=== PATIENT | female | born 1975 | race African-American/Black ===

== ENCOUNTER → 2018-08-08 | Outpatient (CLI) | payer MEDICAID, OTHER ==
[~2018-08-08] MED LIST: GABA300C18 PO
--- NOTE | 2018-08-08 17:18 | RAD ---
EXAM: Ultrasound right breast DATE: 08/08/2018 2:58 PM INDICATION: RT CHEST WALL NODULES along mastectomy scar. COMPARISON: None available FINDINGS: Changes of prior mastectomy are seen. Focal nodularity is seen along the incision site, likely scar tissue. Approximately 2 cm cephalad to the incision is a focal 6 mm hypoechoic nodular structure, possibly representing residual postsurgical change. Hypoechoic irregularity is seen within the right axillary region, also likely postsurgical/posttreatment in nature. IMPRESSION: 1. Mild nodularity along the mastectomy incision is likely postsurgical scarring. 2. Distinct 6 mm hypoechoic nodule 2 cm cephalad to the incision as well as changes in the right axillary region may be postsurgical given history of recent surgery. Consider 6 month follow-up to assess for interval change. Electronically signed by: Octavio Maher MD (08/08/2018 5:14 PM) [facility]
== END | disposition home or self-care (01) ==
LOC: US 14:44
PROVIDERS: ATTEND Psychiatry & Neurology Child & Adolescent Psychiatry
DX: C50.911 Malignant neoplasm of unspecified site of right female breast (principal); R91.8 Other nonspecific abnormal finding of lung field; Z17.0 Estrogen receptor positive status [ER+]; Z90.11 Acquired absence of right breast and nipple
CPT/HCPCS: 76641

== ENCOUNTER 2018-10-01 08:41 | Outpatient (CLI) | payer OTHER ==
[~2018-10-01] VITALS: Ht 167.6 cm; Wt 122.5 kg
[~2018-10-01 08:41] MED LIST changes: +AMLO5TAB10 PO; +HYDR-3164 PO
--- NOTE | 2018-10-01 09:28 | NUR ---
Patient has concerns about having port removed because her breast area feels different and some swelling. Dr. Whatley spoke with patient and have decided to reschedule port removal until after she follows up with Dr. Gonzales.
== END 2018-10-01 09:15 | disposition home or self-care (01) ==
LOC: INTRAD 08:41
PROVIDERS: ATTEND Internal Medicine Hematology & Oncology
DX: C50.919 Malignant neoplasm of unspecified site of unspecified female breast (principal); Z53.8 Procedure and treatment not carried out for other reasons

== ENCOUNTER → 2018-10-02 | Outpatient (CLI) | payer OTHER ==
--- NOTE | 2018-10-02 08:32 | RAD ---
EXAM: Chest sonogram. HISTORY: Swelling around port catheter. TECHNIQUE: Sonographic imaging of the chest at the site of a port catheter reservoir was performed. COMPARISON: None. FINDINGS: There is soft tissue edema surrounding a left chest wall port catheter. There is a complex fluid collection located approximately 3.0 cm lateral to the port reservoir at the site of a prior mastectomy, measuring approximately 7.0 cm in maximum dimension. IMPRESSION: Large complex collection lateral to a left chest wall port catheter measuring 7.2 cm in maximum dimension. Given a history of a left mastectomy, this is likely a postoperative seroma or hematoma. The possibility of superimposed infection is not excluded. There is surrounding soft tissue edema overlying this region and surrounding a left chest wall port catheter. Electronically signed by: Veronica Slaughter MD (10/02/2018 8:29 AM) [id number]
== END | disposition home or self-care (01) ==
LOC: US 07:35
PROVIDERS: ATTEND Internal Medicine Hematology & Oncology
DX: L03.313 Cellulitis of chest wall (principal); Z90.12 Acquired absence of left breast and nipple
CPT/HCPCS: 76604

== ENCOUNTER 2019-09-26 07:03 | Outpatient (CLI) | payer MEDICARE, MEDICAID ==
[~2019-09-26] VITALS: Ht 167.6 cm; Wt 119.3 kg
[2019-09-26] VITALS (7 sets, daily range): BP systolic 106–166; BP diastolic 72–111
[~2019-09-26 07:03] MED LIST changes: +HYDR-2761 PO; +LEUP22.52 IM
[2019-09-26] MEDS ORDERED: CHOL40003 PO (07:27)
[2019-09-26 07:42] LABS: BASO % 0 % (0-3); EOS # 0.2 x10^3/uL (0.0-0.7); EOS % 3 % (0-3); HEMATOCRIT 33.4 % (36.0-47.0); LYMPH # 1.4 x10^3/uL (1.0-4.8); LYMPH % 18 % (24-48); MEAN CORPUSCULAR HEMOGLOBIN 27 pg (25-35); MEAN CORPUSCULAR HGB CONC 33 g/dL (31-37); MEAN CORPUSCULAR VOLUME 83 fL (79-100); MONO % 13 % (0-9); NEUT # 5.1 x10^3/uL (1.8-7.7); NEUT % 66 % (31-73); PLATELET COUNT 259 x10^3/uL (140-400); RED BLOOD COUNT 4.04 x10^6/uL (3.50-5.40); RED CELL DISTRIBUTION WIDTH 19.3 % (11.5-14.5); WHITE BLOOD COUNT 7.8 x10^3/uL (4.0-11.0)
[2019-09-26 07:55] LABS: PROTHROMBIN TIME PATIENT 13.1 SEC (11.7-14.0)
[2019-09-26 07:59] LABS: CALCIUM 8.5 mg/dL (8.5-10.1); CREATININE 0.7 mg/dL (0.6-1.0); GFR 111.6; POTASSIUM 3.9 mmol/L (3.5-5.1)
[2019-09-26] MEDS ORDERED: LIDOCAINE 1%/EPI 1:100,000 20 ML VIAL. ONE (08:22)
[2019-09-26] MEDS ORDERED: fentaNYL PF VIAL 100 MCG/2 ML VIAL ONE (08:32)
[2019-09-26] MEDS ORDERED: ceFAZolin SODIUM IV Push 1 GM VIAL. IVP ONE ×4 (08:32→09:30)
[2019-09-26] MEDS ORDERED: MIDAZOLAM HCL/PF 2 MG/2 ML VIAL. ONE (08:32)
[2019-09-26] MEDS ORDERED: HEPARIN PF 500 UNIT/5 ML DISP.SYRIN. ONE (08:39)
[2019-09-26] MEDS ORDERED: LIDOCAINE 1%/EPI 1:100,000 20 ML VIAL. SQ ONE (09:00)
[2019-09-26] MEDS ORDERED: MIDAZOLAM HCL/PF 2 MG/2 ML VIAL. IV ONE (09:00)
[2019-09-26] MEDS ORDERED: fentaNYL PF VIAL 100 MCG/2 ML VIAL IV ONE (09:00)
[2019-09-26] MEDS ORDERED: HEPARIN PF 500 UNIT/5 ML DISP.SYRIN. IVP ONE (09:00)
[2019-09-26] MEDS ORDERED: VANCOMYCIN 1GM IVPB FOR OMNI 250 ML IV ONE (09:30)
--- NOTE | 2019-09-26 11:05 | NUR ---
Discharge Note: AUGUST MENDES Discharge instructions and discharge home medications reviewed with Patient and a copy given. All questions have been answered and understanding verbalized. The following instructions and handouts were given: implanted port, sedation, transport company manager information packet Dressing site remains clean and dry Discontinued lines and drains: IV site dc'd intact. Patient discharged to home with family via wheelchair. [facility]
--- NOTE | 2019-10-01 09:23 | RAD ---
Procedure: Ultrasound and fluoroscopically guided placement of right internal jugular power port.. 10/01/2019 7:19 AM Clinical Indication: CHEMOTHERAPY Sedation: Conscious sedation was administered for 30 minutes. The patient was monitored by a qualified independent observer throughout the time of sedation. Please refer to the medical record for exact doses of medications utilized to achieve moderate sedation. Fluoroscopy time: Approximately 1 min Dose area product: 4 Gycm2 Consent: The procedure was explained in its entirety to the patient or the patients designated u.s. representative by a member of the treatment team, including a discussion of the risks, benefits and commonly accepted alternatives to the procedure, as well as the expected consequences of no therapy whatsoever. Discussion of the risks included, but was not limited to, those that are most frequent and those that are rare but possibly severe or life-threatening, as well as the possibility of unforeseen complications. Technique and Findings: All elements of maximal sterile barrier technique including the use of a cap, mask, sterile gown, sterile gloves, large sterile sheet, appropriate hand hygiene, and 2% chlorhexidine for cutaneous antisepsis (or acceptable alternative antiseptic per current guidelines) were followed for this procedure. Following informed consent, and a timeout procedure, the patient was prepped and draped in the usual sterile fashion. Ultrasound interrogation of the right neck revealed patency and compressibility of the right internal jugular vein. A 21-gauge micropuncture was then used to gain access to this vein under ultrasound guidance. A hard copy ultrasound image was recorded. The needle was exchanged over a wire for a sheath. A 1 inch incision was made several centimeters inferior to the venotomy site. A catheter was tunneled from this site dermatotomy site in the neck. Catheter was advanced through peel-away sheath such that its tip was in the proximal right atrium with the patient supine. The catheter was trimmed to length and connected to the port reservoir. The port was found to flush and aspirate normally. The wound was closed in layers using 4-0 Vicryl suture. Sterile dressings were applied. Impression: Successful ultrasound and fluoroscopically guided placement of a right internal jugular PowerPort (radiolucent, Bard clear view port)
== END 2019-09-26 11:00 | disposition home or self-care (01) ==
LOC: INTRAD 07:03
PROVIDERS: ATTEND Internal Medicine Hematology & Oncology
DX: Z45.2 Encounter for adjustment and management of vascular access device (principal); C50.811 Malignant neoplasm of overlapping sites of right female breast; C78.00 Secondary malignant neoplasm of unspecified lung; C79.51 Secondary malignant neoplasm of bone; I10 Essential (primary) hypertension; Z79.899 Other long term (current) drug therapy; Z79.01 Long term (current) use of anticoagulants; Z90.13 Acquired absence of bilateral breasts and nipples; Z88.6 Allergy status to analgesic agent
CPT/HCPCS: 36415; 36561; 76937; 77001; 80048; 85025; 85610; 85730; 99152; 99153; C1751; C1892; J0690; J2250; J3010; J3490